=== PATIENT | female | born 1970 | race Caucasian/White ===

== ENCOUNTER 2020-03-10 06:30 | Day surgery (SDC) | payer BC ==
--- NOTE | 2020-03-10 06:08 | EKG ---
Test Date: 2020-03-09 Test Time: 13:22:07 Guest Service Supervisor: MERLYN MEASUREMENT RESULTS: Intervals: Rate: 76 [place]: 132 QRSD: 88 QT: 374 QTc: 420 [place]: P: 56 [place]: 132 QRS: 75 T: 40 INTERPRETIVE STATEMENTS: Normal sinus rhythm Normal ECG No previous ECG available for comparison Electronically Signed On 03-10-20 06:08:00 OFFICE TECHNICIAN by Franky Jamil
--- OUTSIDE RECORDS SUMMARY | 2020-03-10 06:34 | XMS REPORT | Summary of Care ---
:1970 Author Organization [address] [address] Care Team Providers Name Role Phone Javad Sanchez Primary Care Provider Reason for Referral Radiology Services (Routine) Status Reason Specialty Diagnoses / Referred By Referred To Procedures Contact Contact Closed Diagnostic Diagnoses Encounter for screening mammogram for breast cancer MonBertha steelfer Radiology Procedures BI SCREENING MAMMOGRAM BILATERAL [address] [place] [address] Reason for Visit Radiology Services (Routine) Status Reason Specialty Diagnoses / Referred By Referred To Procedures Contact Contact Closed Diagnostic Diagnoses Encounter for screening mammogram for breast cancer Monical Kristen Radiology Procedures BI SCREENING MAMMOGRAM BILATERAL [address] [place] [address] Encounter Details Date Type Department Care Team Description 01/29/2020 Hospital Encounter [facility] [id number] [place] [id number] Allergies Not on Filedocumented as of this encounter (statuses as of 01/30/2020) Medications Not on filedocumented as of this encounter (statuses as of 01/30/2020) Active Problems Not on filedocumented as of this encounter (statuses as of 01/30/2020) Social History Tobacco Use Types Packs/Day Years Used Date Never Assessed Sex Assigned at Date Recorded Not on file COVID-19 Exposure Response Date Recorded In the last month, have you been in contact with No / Unsure 01/29/2020 3:56 PM CDT someone who was confirmed or suspected to have Coronavirus / COVID-19? documented as of this encounter Last Filed Vital Signs Not on filedocumented in this encounter Plan of Treatment Name Type Priority Associated Diagnoses Date/Ti me BI SCREENING MAMMOGRAM IMAGING Routine Encounter for scre ening 01/29/2020 4:41 PM BILATERAL mammogram for breast CDT cancer Name Type Priority Associated Diagnoses Order S chedule BI SCREENING MAMMOGRAM IMAGING Routine Encounter for scre ening ONCE for 1 Occurrences BILATERAL mammogram for breast startin g 01/29/2020 cancer until 0 Health Maintenance Due Date Last Done Comments Depression Screening 1981 DTaP,Tdap,and Td Vaccines (1 - 1988 Tdap) PAP SMEAR 1990 Breast Cancer Screening (MAMMOGRAM) 2009 COLON CANCER SCREENING ANNUAL 2019 FIT/FOBT COLON CANCER SCREENING FIT DNA 2019 EVERY 3 YEARS COLON CANCER SCREENING 2019 SIGMOIDOSCOPY EVERY 5 YEARS COLONOSCOPY 2019 Colorectal Cancer Screening 2019 Zoster Recombinant Vaccine 2019 (SHINGRIX) (1 of 2) INFLUENZA VACCINE (#1) 2019 PNEUMOCOCCAL 0-64 YEARS COMBINED Aged Out No longer eligible based on SERIES patient's age to complete this topic documented as of this encounter Results Not on filedocumented in this encounter Visit Diagnoses Diagnosis Encounter for screening mammogram for br east cancer documented in this encounter Insurance Payer Benefit Plan / Subscriber ID Effective Dates Phone Addre ss Type Group [employer] [id number] 2019-[place] [phone] [address] [facility] [id number] [place] [address] [phone] (Work) documented as of this encounter
--- OUTSIDE RECORDS SUMMARY | 2020-03-10 06:34 | XMS REPORT | Continuity of Care Document ---
:1970 Author Organization [facility] t Address [address] [place] [address] Care Team Providers Name Role Phone Radiology Attending Clinician Unavailable 1, Sleep Lab Bed Attending Clinician Unavailable Only, Test Attending Clinician Unavailable Doctor Unassigned, Name Attending Clinician Unavailable Tech, Sleep Lab Attending Clinician Unavailable Problems This patient has no known problems. Allergies, Adverse Reactions, Alerts This patient has no known allergies or adverse reactions. Medications This patient has no known medications. Procedures This patient has no known procedures. Encounters Start End Encounter Admission Attending Care Care Encounter Source Date/Time Date/Time Type Type Clinicians Facility Department ID 2020-01-29 2020-01-29 Hospital Radiology [facility] [id number] 15:57:02 23:59:00 Encounter [place] [id number] [place] 4.2.7.2.686 [place] [id number] 2019-10-10 2019-10-10 Technical [facility] Consultant 1, [place] [id number] 07:46:48 07:46:57 Visit Sleep Lab [place] [id number] Bed [place] 4.2.7.2.686 [place] [id number] 2019-10-06 2019-10-06 Laboratory Only, [place] [id number] 10:08:46 10:23:46 Only Test [place] 350.1.13.10 [place] 4.2.7.2.686 [place] [id number] 2019-10-06 2019-10-06 Orders Doctor SHRESTHA [id number] 00:00:00 00:00:00 Only UnassignedMARY 350.1.13.10 [place] [facility] 4.2.7.2.686 [id number] 2019-06-24 2019-06-24 Orders Doctor FADY [id number] 00:00:00 00:00:00 Only UnassignedMARY 350.1.13.10 [place] [facility] 4.2.7.2.686 [id number] 2019-06-23 2019-06-23 Technical Healthcare Consultant [facility] [id number] 15:07:35 15:22:35 Visit Sleep Lab [place] 350.1.13.10 [place] 4.2.7.2.686 [place] [id number] Results This patient has no known results.
[2020-03-10] MEDS ORDERED: propofoL 200 MG/20 ML VIAL IV ONE (06:51)
[2020-03-10] MEDS ORDERED: FENTANYL CITR 100 MCG/2 ML ONE (06:51)
[2020-03-10] MEDS ORDERED: MIDAZOLAM HCL 2 MG/2 ML INJ ONE (06:51)
[2020-03-10] MEDS ORDERED: LIDOCAINE 2% MPF 5 ML VIAL ONE (06:54)
[2020-03-10] MEDS ORDERED: CEFAZOLIN/SWI 1gm 1 GM/10 ML SYR ONE (07:07)
[2020-03-10] MEDS ORDERED: Ringers Lactate 1,000 ML IV ONE (07:07)
[2020-03-10] MEDS ORDERED: BACITRACIN 50000 UNIT VIAL ONE (07:31)
[2020-03-10] MEDS ORDERED: NS 0.9% VIAL 10 ML ONE (07:31)
[2020-03-10] MEDS ORDERED: dexAMETHasone 10 MG/ML VIAL ONE (08:02)
[2020-03-10] MEDS ORDERED: ROCURONIUM 50 MG/5 ML VIAL IV ONE (08:51)
[2020-03-10] MEDS ORDERED: KETOROLAC 30 MG/ML INJ ONE (09:05)
[2020-03-10] MEDS: MORPHINE 4 MG/ML SYR ONE ×4 (09:21→09:42)
[2020-03-10] MEDS ORDERED: HYDROMORPHONE HCL 1 MG/ML INJ ONE (09:35)
[2020-03-10] MEDS ORDERED: ONDANSETRON 4 MG/2 ML VIAL ONE ×2 (09:35→09:56)
--- NOTE | 2020-03-10 10:18 | RAD REPORT ---
EXAM DESCRIPTION: RAD - Foot Left 2 View - 03/10/2020 10:13 am CLINICAL HISTORY: 5TH METATARSAL ORIF COMPARISON: No comparisons FINDINGS: Fluoroscopy time 2 minutes.
[2020-03-10 10:35] VITALS: BP 133/64; TEMP 97.4
[2020-03-10 10:54] VITALS: O2SAT 95
== END 2020-03-10 10:43 | disposition home health service (06) ==
LOC: OR 06:30
PROVIDERS: ATTEND Podiatrist Foot & Ankle Surgery
PROC: 0QSP04Z Reposition Left Metatarsal with Internal Fixation Device, Open Approach (ICD-10-PCS; principal; 2020-03-10 07:30)
DX: S92.352A Displaced fracture of fifth metatarsal bone, left foot, initial encounter for closed fracture (principal); F17.210 Nicotine dependence, cigarettes, uncomplicated; F41.9 Anxiety disorder, unspecified; K21.9 Gastro-esophageal reflux disease without esophagitis; Z20.828 Contact with and (suspected) exposure to other viral communicable diseases
CPT/HCPCS: 28485; 93005; 81025; 73620; U0002; J2704; J2250; J3010; J1100; J0690; J7120; J2405 ×2; J1170

== ENCOUNTER 2020-09-22 06:32 | Day surgery (SDC) | payer BC ==
[2020-09-22] MEDS ORDERED: CEFAZOLIN/SWI 1gm 1 GM/10 ML SYR ONE (07:09)
[2020-09-22] MEDS ORDERED: Ringers Lactate 1,000 ML IV ONE (07:09)
[2020-09-22] MEDS ORDERED: CELECOXIB 100 MG CAPSULE ONE (07:14)
[2020-09-22] MEDS ORDERED: ACETAMINOPHEN 500 MG TAB ONE (07:15)
[2020-09-22] MEDS ORDERED: LIDOCAINE 2% MPF 5 ML VIAL ONE (07:35)
[2020-09-22] MEDS ORDERED: dexAMETHasone 4 MG/ML VIAL ONE (07:35)
[2020-09-22] MEDS ORDERED: BUPIVACAINE 0.5% PF 10 ML VIAL ONE (07:35)
[2020-09-22] MEDS ORDERED: Mastisol Adhesive Liq ONE (07:36)
[2020-09-22] MEDS ORDERED: MIDAZOLAM HCL 2 MG/2 ML INJ ONE (07:42)
[2020-09-22] MEDS ORDERED: FENTANYL CITR 100 MCG/2 ML ONE (07:42)
[2020-09-22] MEDS ORDERED: LIDOCAINE 1% MPF 5 ML VIAL ONE (07:42)
[2020-09-22] MEDS ORDERED: propofoL 200 MG/20 ML VIAL IV ONE (07:42)
[2020-09-22] MEDS ORDERED: dexAMETHasone 10 MG/ML VIAL ONE (08:16)
[2020-09-22] MEDS ORDERED: KETOROLAC 30 MG/ML INJ ONE (08:20)
[2020-09-22] MEDS ORDERED: ONDANSETRON 4 MG/2 ML VIAL ONE (08:20)
--- NOTE | 2020-09-22 09:47 | RAD REPORT ---
EXAM DESCRIPTION: RAD - Foot Left 2 View - 09/22/2020 9:22 am CLINICAL HISTORY: Left foot surgery FINDINGS: Sixteen fluoroscopic spot image is submitted. Fluoroscopy time 0.1 minute A screw was removed from the fifth metatarsal. Surgery performed by Dr. Perez
[2020-09-22 10:25] VITALS: TEMP 97.2
[2020-09-22 10:28] VITALS: BP 128/64; O2SAT 95
== END 2020-09-22 10:15 | disposition home health service (06) ==
LOC: OR 06:32
PROVIDERS: ATTEND Podiatrist Foot & Ankle Surgery
PROC: 0SPN04Z Removal of Internal Fixation Device from Left Metatarsal-Phalangeal Joint, Open Approach (ICD-10-PCS; principal; 2020-09-22 07:30)
DX: M79.672 Pain in left foot (principal)
CPT/HCPCS: 20680; 73620; J2704; J2250; J3010; J1100; J0690; J7120; J2405